=== PATIENT | male | born 1990 | race Caucasian/White ===

== ENCOUNTER 2023-02-20 08:59 | Observation (INO) ==
[2023-02-20 09:26] VITALS: BMI 30.7
[2023-02-20] MEDS ORDERED: SODIUM CHLORIDE 1,000 ML IV STA ×3 (10:56→13:45)
--- NOTE | 2023-02-20 10:56 | ED.PDOC ---
General ED Provider: Dr. SHYAM ESTEBAN MD Chief Complaint: Diabetes Stated Complaint: Patient complains of polyuria, polydipsia, over the past 5 weeks denies associated headache, blurred vision, nausea, vomiting, diarrhea, urinary symptoms or abdominal pain. Patient states both his parents are diab etic. Time Seen by Provider: 02/20/23 10:50 Information Source: Patient Exam Limitations: No limitations Nursing and Triage Documentation Reviewed and Agree: Yes Does patient meet sepsis criteria?: No System Inflammatory Response Syndrome: Not Applicable Sepsis Protocol: For patient's 13 years and over: Temp is 96.8 and below OR 101 and greater Pulse >90 BPM Resp >20/minute Acutely Altered Mental Status Are patient's symptoms suggestive of a new infection, such as: -Pneumonia -Skin, Soft Tissue -Endocarditis -UTI -Bone, Joint Infection -Implantable Device -Acute Abdominal Infection -Wound Infection -Meningitis -Blood Stream Catheter Infection -Unknown Miscellaneous Complaint Exam Complex/Multi-System Complaint/Exam Onset/Duration: Over the past 5 weeks, polyuria, polydipsia Review of Systems Review Of Systems Constitutional: Reports No symptoms Eyes: Reports No symptoms Ears, Nose, Mouth, Throat: Reports No symptoms Cardiac: Reports No symptoms GI: Reports No symptoms : Reports No symptoms Musculoskeletal: Reports No symptoms Skin: Reports No symptoms Neurological: Reports No symptoms Endocrine: Reports Increased thirst and Increased urine Hematologic/Lymphatic: Reports No symptoms All Other Systems: Reviewed and Negative Physical Exam Physical Exam Appearance: Reports Well-appearing Ill-appearing: Not Applicable Pain Distress: Not Applicable Eyes: Reports JOLANTA, EOMI and Conjunctiva clear; Denies Conjunctiva inflammed ENT: Reports Ears normal, Nose normal and Oropharynx normal; Denies TMs Occluded Neck: Supple Respiratory: Reports Airway patent, Breath sounds clear and Breath sounds equal; Denies Breath sounds diminished Cardiovascular: Reports Pulses normal, No rub and No murmur GI/: Reports Nontender, No masses, Bowel sounds normal and No Organomegaly Musculoskeletal: Reports Normal strength Skin: Reports Warm and Dry Neurological: Reports Sensation intact, Motor intact and Reflexes intact Psychiatric: Reports Affect appropriate Interpretation EKG Interpretation EKG Interpretation By: ED Physician Time of EKG #1: 11:18 Rate: Normal Rhythm: Sinus Ectopy: PVCs (Location previously) [place]: NL ST Segment: Normal Interpretation: EKG interpretation by myself Physician Notification Case Discussed Physician Notified: Discussed with hospitalist Em Time of Notification: 13:36 Comments: Discussed the patient's history of present illness emergency room course laboratory data, agrees to observation Critical Care Note Critical Care Note Total Critical Care Time (mins): 0 Course Course 02/20/23 11:13 02/20/23 11:13 Orders, Labs, Meds: Lab Review 02/20/23 02/20/23 02/20/23 11:06 11:13 11:29 WBC 9.10 RBC 5.39 Hgb 16.4 Hct 46.6 MCV 86.5 MCH 30.4 MCHC 35.2 RDW Coeff of Alejandro 13.0 Plt Count 256 Immature Gran % (Auto) 0.3 Neut % (Auto) 71.9 Lymph % (Auto) 20.7 [place] % (Auto) 5.7 Eos % (Auto) 1.2 Baso % (Auto) 0.2 Neut # (Auto) 6.5 Lymph # (Auto) 1.9 [place] # (Auto) 0.5 Eos # (Auto) 0.1 Baso # (Auto) 0.0 Immature Gran # (Auto) 0.0 Puncture Site Lbrach Base Excess -1.9 O2 Saturation 99.3 H ABG pH 7.47 H ABG pCO2 30.0 L ABG pO2 141.0 H ABG HCO3 21.8 ABG Total CO2 22.7 Babar Test Pos Hemoglobin 1.3 Oxyhemoglobin 94.0 L Carboxyhemoglobin 3.2 H Total Hemoglobin 17.2 FiO2 % Sodium 129.9 L Potassium 4.41 Chloride 94.1 L Carbon Dioxide 23.6 Anion Gap 16.61 BUN 17.9 Creatinine 0.66 Estimated GFR (MDRD) 139.00 BUN/Creatinine Ratio 27.12 Glucose 640.8 H* Hemoglobin A1c 13.51 H Calcium 9.99 Magnesium 1.95 Total Bilirubin 0.92 AST 25.9 ALT 33.6 Alkaline Phosphatase 110.2 Total Protein 8.01 Albumin 4.90 Globulin 3.11 Albumin/Globulin Ratio 1.57 TSH 1.750 Urine Color Yellow Urine Clarity Clear Urine pH 5.5 Ur Specific [place] <=1.005 Urine Protein Negative Urine Glucose (UA) 2+ H Urine Ketones 2+ H Urine Blood Negative Urine Nitrite Negative Urine Bilirubin Negative Urine Urobilinogen 0.2 Ur Leukocyte Esterase Negative Acetone, Qual Small Orders Category Date Time Status ADMIT OBSERVATION [PLACE PATIENT OBSERVATION] .TO ADMISSION 02/20/23 13:45 Active MEDSURG (NON-MONITORED BED) ABG DRAW REQUEST Stat CARDIO 02/20/23 10:57 Completed EKG-(ED ONLY) Stat CARDIO 02/20/23 10:56 Completed ACCUCHECK (MED/SURG, SCU) [BLOOD GLUCOSE MONITORING ( CARE 02/20/23 13:45 Active MED/SURG)] 0630,1100,1700,2100 ACTIVITY .Up ad Martha CARE 02/20/23 13:45 Active GIVE HS SNACK 2100 CARE 02/20/23 13:51 Active TELEMETRY MONITORING TELE CARE 02/20/23 10:56 Active VITAL SIGNS Q6HR CARE 02/20/23 13:45 Active ADA 1800 EARLENE. DIET DIETARY 02/20/23 Dinner Ordered HS SNACK DIETARY 02/20/23 Dinner Ordered ABG COOX Stat LAB 02/20/23 11:06 Completed ACETONE, QUALITATIVE Stat LAB 02/20/23 11:13 Completed CBC W/ AUTO DIFF Stat LAB 02/20/23 11:13 Completed CMP [COMPREHENSIVE METABOLIC PANEL] Stat LAB 02/20/23 11:13 Completed HEMOGLOBIN A1C Routine LAB 02/20/23 11:13 Completed MAGNESIUM Stat LAB 02/20/23 11:13 Completed TSH [THYROID STIMULATING HORMONE] Stat LAB 02/20/23 11:13 Completed URINALYSIS C & S IF INDICATED Stat LAB 02/20/23 11:29 Completed Acetaminophen [Tylenol] Meds 02/20/23 13:50 Ordered 650 mg PO Q4H PRN Insulin Regular, Human [Humulin R] Meds 02/20/23 12:00 Discontinued 10 unit IVP ONCE STA Sodium Chloride 0.9% [Sodium Chloride] 1,000 ml Meds 02/20/23 13:45 Active IV 125 mls/hr Sodium Chloride 0.9% [Sodium Chloride] 1,000 ml Meds 02/20/23 10:56 Discontinued IV BOLUS Sodium Chloride 0.9% [Sodium Chloride] 1,000 ml Meds 02/20/23 12:00 Discontinued IV BOLUS Medications Generic Name Dose Route Start Last Admin Trade Name Freq PRN Reason Stop Dose Admin Acetaminophen 650 mg 02/20/23 13:50 Acetaminophen 325 Mg Tablet PO Q4H PRN Fever >101 Sodium Chloride 1,000 mls @ 125 mls/hr 02/20/23 13:45 Sodium Chloride IV 02/20/23 21:44 .Q8H STA Discontinued Medications Generic Name Dose Route Start Last Admin Trade Name Titiq PRN Reason Stop Dose Admin Sodium Chloride 1,000 mls @ 1,000 mls/hr 02/20/23 10:56 Sodium Chloride IV 02/20/23 11:55 BOLUS STA Sodium Chloride 1,000 mls @ 1,000 mls/hr 02/20/23 12:00 02/20/23 12:38 Sodium Chloride IV 02/20/23 12:59 1,000 mls/hr BOLUS STA Administration Insulin Human Regular 10 unit 02/20/23 12:00 02/20/23 12:36 Insulin Regular, Human 100 Unit/Ml (3ml) Vial 0.1 unit/kg (10 unit) 02/20/23 12:01 10 unit IVP Administration ONCE STA Vital Signs: Temp Pulse Resp BP Pulse Ox 02/20/23 09:21 98.2 F 81 18 146/95 H 95 Discharge Plan Discharge Patient Disposition: PLACED OBSERVATION Discharge Problem: Hyperosmolar hyperglycemic state (HHS), Diabetes mellitus, new onset Did you review [place] [employer] for ALL controlled substances?: Not Applicable ED Provider: SHYAM ESTEBAN Condition: Stable Physician Progress Note: History obtained from the patient. Patient complains of a 5-week history of polyuria and polydipsia. Denies weakness, blurred vision, headache, nausea, vomiting, diarrhea, abdominal pain. Accu-Chek was greater than 500. Patient administered IV fluids normal saline 1 L bolus over 1 hour Laboratory data interpreted by myself the CBC is normal the BMP the glucose is 640. Acetone was small. The arterial blood gas pH is 7.4, CO2 of 30, PO2 141, bicarb 22. Saturation 96%. Patient received second bolus normal saline 1 L over 1 hour followed by regular insulin 10 units IV push. Accu-Chek at 1330-glucose of 425. Discussed with hospitalist Em at 1336 for observation Differential diagnosis: 1) hyperosmolar hyperglycemia 2) new onset diabetes mellitus 3) diabetic ketoacidosis []
[2023-02-20 11:30] LABS: ABG PH 7.47 (7.35-7.45); BEecf -1.9 (-2.0-3.0); COHb 3.2 (0.5-1.5); HCO3 21.8 (21-28); MetHb 1.3 (0-1.5); TCO2 22.7 (19-24); sO2 99.3 % (94-98); tHb 17.2 g/dl (11.7-17.4)
[2023-02-20 11:32] LABS: BASOPHILS % (AUTO) 0.2 % (0.0-3.0); EOSINOPHILS # (AUTO) 0.1 K/ul (0.0-0.7); EOSINOPHILS % (AUTO) 1.2 % (0.0-7.0); HEMATOCRIT 46.6 % (42.0-52.0); HEMOGLOBIN 16.4 g/dl (14.0-18.0); IMMATURE GRANULOCYTE % (AUTO) 0.3 % (0.0-5.0); LYMPHOCYTES # (AUTO) 1.9 K/uL (0.60-3.4); LYMPHOCYTES % (AUTO) 20.7 (10.0-50.0); MEAN CORPUSCULAR HEMOGLOBIN 30.4 pg (27.0-31.0); MEAN CORPUSCULAR HGB CONC 35.2 (31.8-35.4); MEAN CORPUSCULAR VOLUME 86.5 fl (80.0-94.0); MONOCYTES # (AUTO) 0.5 K/uL (0.4-2.0); MONOCYTES % (AUTO) 5.7 (0-10); NEUTROPHILS # (AUTO) 6.5 K/ul (2.0-6.9); NEUTROPHILS % (AUTO) 71.9 % (42.2-75.2); PLATELET COUNT 256 10^3/uL (140-440); RED BLOOD COUNT 5.39 10^6/ul (4.70-6.10)
[2023-02-20 11:42] LABS: ALANINE AMINOTRANSFERASE 33.6 U/L (0-50); ALBUMIN 4.9 g/dL (3.5-5.0); ALKALINE PHOSPHATASE 110.2 U/L (38-126); ASPARTATE AMINO TRANSFERASE 25.9 U/L (17-59); BILIRUBIN,TOTAL 0.92 mg/dL (0.2-1.3); BLOOD UREA NITROGEN 17.9 mg/dL (9-20); CALCIUM 9.99 mg/dL (8.4-10.2); CARBON DIOXIDE 23.6 mmol/L (22-30.0); CHLORIDE 94.1 mmol/L (98-107); CREATININE 0.66 mg/dL (0.60-1.10); MAGNESIUM 1.95 mg/dL (1.6-2.3); POTASSIUM 4.41 mmol/L (3.5-5.1); SODIUM 129.9 mmol/L (134.5-145); TOTAL PROTEIN 8.01 g/dL (6.3-8.2)
[2023-02-20 11:46] LABS: BILIRUBIN,URINE Negative (NEGATIVE); CLARITY,URINE Clear (CLEAR); COLOR,URINE Yellow (YELLOW); GLUCOSE, URINE (UA) 2+ (NEGATIVE); KETONES,URINE 2+ (NEGATIVE); LEUKOCYTE ESTERASE ,URINE Negative (NEGATIVE); NITRITE,URINE Negative (NEGATIVE); PH,URINE 5.5 (5-9); PROTEIN,URINE Negative (NEGATIVE); URINE, BLOOD Negative (NEGATIVE); UROBILINOGEN,URINE 0.2 (0.2)
[2023-02-20 11:54] LABS: GLUCOSE 640.8 mg/dL (74-106)
[2023-02-20] MEDS ORDERED: HUMULIN R IVP STA (12:00)
--- NOTE | 2023-02-20 13:36 | PCM ---
Date of Service Date Seen by Provider: 02/20/23 Time Seen by Provider: 14:00 Admit Day/Time Admission Date: 02/20/23 Admission Time: 13:45 Reason for Admission Chief Complaint: HYPERGLYCEMIA, NEW ONSET DM Hospital Provider Hospital Provider: Karena Tello PA-C, [facility] History of Present Illness History of Present Illness: Patient is a pleasant 33-year-old male with no significant past medical history who presented to the ER with possibly elevated blood sugar. He states that for the last 5 weeks he has had increased urination, fatigue, dry mouth, drinking lots of water, and blurry vision. He is driving across several states and heading home towards [place]. He felt unsafe driving because of how unwell he felt. In the ER he was found to have glucose over 600. Labs otherwise unremarkable other than sodium of 129. Bicarb normal. UA showing ketones. Sma ll acetone. Patient received 2 L of fluid and 10 units of subq insulin. He is feeling much better at this time. No nausea vomiting or abdominal pain. He states that his parents are diabetic. They are type II. No significant family history of autoimmune disease. Patient will be admitted to observation. Case Discussed With Case Discussed With: Patient's case was discussed with the ER Physicians, Dr. Thompson. [facility] Surgical History (Updated 02/20/23 @ 14:52 by KARENA TELLO PA-C) History of orthopedic surgery Z98.890 - Other specified postprocedural states (ICD-10) Family History (Updated 02/20/23 @ 14:52 by KARENA TELLO PA-C) Mother Diabetes FATHER Diabetes Social History (Updated 02/20/23 @ 14:52 by KARENA TELLO PA-C) Smoking and tobacco status: Former smoker How long ago did patient quit smokin months ago Alcohol intake: current Details: Mostly on weekends Substance use type: does not use Allergies Allergies Allergy/AdvReac Type Severity Reaction Status Date / Time No Known Allergies Allergy Unverified 02/20/23 10:32 Current Medications Home Medications 1 [No Reported Medications] 02/20/23 [History Confirmed 02/20/23 Last Taken Unknown] Home Acetaminophen (Acetaminophen 325 Mg Tablet) 650 mg PO Q4H PRN PRN Reason: Fever >101 Acetaminophen (Acetaminophen 325 Mg Tablet) 650 mg PO Q4H PRN PRN Reason: Mild Pain Enoxaparin Sodium (Enoxaparin Sodium 40 Mg/0.4 Ml Syr) 40 mg SUBCUT DAILY [facility], [facility]1983 Lactated Ringer's (Lactated Ringers) 1,000 mls @ 125 mls/hr IV .Q8H [facility], 1928[facility]1983 Insulin Glargine (Insulin Glargine,Hum.Rec.Anlog 100 Units/Ml) 10 unit SUBCUT BEDTIME [place] Insulin Human Lispro (Insulin Lispro 100 Unit/Ml (3 Ml) Vial) 0 unit SUBCUT PRN PRN; Protocol PRN Reason: Hyperglycemia Discontinued Medications Sodium Chloride (Sodium Chloride) 1,000 mls @ 1,000 mls/hr IV BOLUS STA Stop: 02/20/23 11:55 Last Admin: 02/20/23 11:00 Dose: 1,000 mls/hr Sodium Chloride (Sodium Chloride) 1,000 mls @ 1,000 mls/hr IV BOLUS STA Stop: 02/20/23 12:59 Last Admin: 02/20/23 12:38 Dose: 1,000 mls/hr Sodium Chloride (Sodium Chloride) 1,000 mls @ 125 mls/hr IV .Q8H STA Stop: 02/20/23 21:44 Last Admin: 02/20/23 14:16 Dose: 125 mls/hr Insulin Human Regular (Insulin Regular, Human 100 Unit/Ml (3ml) Vial) 10 unit 0.1 unit/kg (10 unit) IVP ONCE STA Stop: 02/20/23 12:01 Last Admin: 02/20/23 12:36 Dose: 10 unit Review of Systems Constitutional: Reports Fatigue; Denies Fever Head: Reports Normocephalic and Atraumatic Eyes: Reports Blurred vision Ears: Denies Drainage Nose: Denies Post Nasal Drip or Congestion Throat: Denies Sore Throat or Difficulty Swallowing Cardiovascular: Denies Chest pain or Chest Pressure Respiratory: Denies Cough or Shortness of air Gastrointestinal: Denies Nausea, Vomiting, Diarrhea or Abdominal pain Genitourinary: Reports Other (+polyuria ); Denies Dysuria Dermatologic: Denies Rashes Endocrine: Reports Excessive thirst and Polyuria Neurological: Reports Dizziness; Denies Headache or Weakness Psychiatric: Denies Depression or Anxiety Physical examination Most Recent Vital Signs: Most Recent Vital Signs Temperature 98.2 F 02/20/23 09:21 Temperature Source Infrared 02/20/23 09:21 Pulse Rate 81 02/20/23 09:21 Respiratory Rate 18 02/20/23 09:21 Blood Pressure 146/95 H 02/20/23 09:21 O2 Sat by Pulse Oximetry 95 02/20/23 09:21 Height 5 ft 11 in 02/20/23 09:21 Weight 220 lb 02/20/23 09:21 Appearance: Positive Well-appearing, Well-nourished, No Apparent Distress and Alert and Oriented x3 Skin: Positive [place], Warm and Good Turgor; Negative Rashes HEENT: Positive Normocephalic and Atraumatic Neck: Positive Supple and Midline Trachea Chest/Lungs: Positive Symmetrical With Equal Breath Sounds and Clear to Auscultation Bilaterally; Negative Rales, Rhonci or Wheezes Heart: Positive RRR GI/: Positive Soft, Nontender and Bowel Sounds Normal Musculoskeletal: Positive Normal Gait and Station Extremities: Positive Good ROM in All Joints; Negative Edema Neurological: Positive Cranial Nerves Intact, Alert, Oriented and Muscle Strength 5/5 in Upper and Lower Extremities Bilaterally Psychiatric: Positive Oriented x4, Appropriate Mood, Appropriate Affect and Intact Memory Labs This Visit Labs This Visit: Labs This Visit 02/20/23 02/20/23 02/20/23 11:06 11:13 11:29 WBC 9.10 RBC 5.39 Hgb 16.4 Hct 46.6 MCV 86.5 MCH 30.4 MCHC 35.2 RDW Coeff of Alejandro 13.0 Plt Count 256 Immature Gran % (Auto) 0.3 Neut % (Auto) 71.9 Lymph % (Auto) 20.7 [place] % (Auto) 5.7 Eos % (Auto) 1.2 Baso % (Auto) 0.2 Neut # (Auto) 6.5 Lymph # (Auto) 1.9 [place] # (Auto) 0.5 Eos # (Auto) 0.1 Baso # (Auto) 0.0 Immature Gran # (Auto) 0.0 Puncture Site Lbrach Base Excess -1.9 O2 Saturation 99.3 H ABG pH 7.47 H ABG pCO2 30.0 L ABG pO2 141.0 H ABG HCO3 21.8 ABG Total CO2 22.7 Babar Test Pos Hemoglobin 1.3 Oxyhemoglobin 94.0 L Carboxyhemoglobin 3.2 H Total Hemoglobin 17.2 FiO2 % Sodium 129.9 L Potassium 4.41 Chloride 94.1 L Carbon Dioxide 23.6 Anion Gap 16.61 BUN 17.9 Creatinine 0.66 Estimated GFR (MDRD) 139.00 BUN/Creatinine Ratio 27.12 Glucose 640.8 H* Calcium 9.99 Magnesium 1.95 Total Bilirubin 0.92 AST 25.9 ALT 33.6 Alkaline Phosphatase 110.2 Total Protein 8.01 Albumin 4.90 Globulin 3.11 Albumin/Globulin Ratio 1.57 TSH 1.750 Urine Color Yellow Urine Clarity Clear Urine pH 5.5 Ur Specific [place] <=1.005 Urine Protein Negative Urine Glucose (UA) 2+ H Urine Ketones 2+ H Urine Blood Negative Urine Nitrite Negative Urine Bilirubin Negative Urine Urobilinogen 0.2 Ur Leukocyte Esterase Negative Acetone, Qual Small Imaging Imaging: None Review Statement Review Statement: I have independently reviewed and interpreted the labs/EKGs/imaging that were ordered by the ER provider. I have reviewed all outside records that are available currently in our EMR including imaging/notes/labs from previous visits. Plan Plan: 1. Hyperglycemia in new onset diabetic without AMS - Bicarb normal. Symptoms improved. Pt has family history of DMT2, however he is a young presentation, catabolic symptoms, not overly obese with BMI of 30. Will send DMT1 vs 2 labs including insulin, c peptide, LILY 65. He will need to f/u with pcp outpatient for these results since they are send outs. Will start lantus 10 units at bedtime, humalog sliding scale. Diabetic diet. Will likely discharge tomorrow with lantus and metformin. A1c 13.5. 2. DM, new onset - Plan as above. 3. Pseudohyponatremia - Will improve with fluids and glucose correction. Repeat BMP in AM. DVT Prophylaxis: Lovenox Time Spent: Greater than 80 minutes spent with patient, 50% of the time spent with this patient was devoted to counseling and coordination of care. [facility] minutes spent discussing advance care planning. FULL CODE. Admit to: Observation Discussed Plan of Care with Dr. Gina Keller.
[2023-02-20] MEDS ORDERED: TYLENOL PO PRN ×2 (13:50→14:23)
[2023-02-20] MEDS: LACTATED RINGERS 1,000 ML IV SCH (15:14)
--- NOTE | 2023-02-20 15:19 | DI ---
EXAM: CHEST TWO VIEWS HISTORY: Hyperglycemia COMPARISON: None FINDINGS: The cardiomediastinal silhouette is normal. The pulmonary vasculature is normal. No pneum othoraces or pleural effusions. No consolidating infiltrates are detected. The bones are intact. IMPRESSION: 1. No acute cardiopulmonary disease. .
[2023-02-20] MEDS ORDERED: HUMALOG SUBCUT ONE (17:42)
[2023-02-20] MEDS: HUMALOG SUBCUT PRN (20:45)
[2023-02-20] MEDS ORDERED: LANTUS SUBCUT SCH (21:00)
[2023-02-20 21:54] VITALS: PULSE 63; TEMP 97.6
[2023-02-21] MEDS: LACTATED RINGERS 1,000 ML IV SCH ×2 (00:50→12:15)
[2023-02-21 05:41] LABS: BASOPHILS % (AUTO) 0.5 % (0.0-3.0); EOSINOPHILS # (AUTO) 0.2 K/ul (0.0-0.7); EOSINOPHILS % (AUTO) 2.5 % (0.0-7.0); HEMATOCRIT 46.1 % (42.0-52.0); HEMOGLOBIN 15.7 g/dl (14.0-18.0); IMMATURE GRANULOCYTE % (AUTO) 0.5 % (0.0-5.0); LYMPHOCYTES # (AUTO) 1.7 K/uL (0.60-3.4); LYMPHOCYTES % (AUTO) 26.2 (10.0-50.0); MEAN CORPUSCULAR HGB CONC 34.1 (31.8-35.4); MONOCYTES # (AUTO) 0.5 K/uL (0.4-2.0); MONOCYTES % (AUTO) 7.6 (0-10); NEUTROPHILS % (AUTO) 62.7 % (42.2-75.2); PLATELET COUNT 222 10^3/uL (140-440); RDW COEFFICIENT OF VARIATION 13.1 % (11.6-14.8); RED BLOOD COUNT 5.24 10^6/ul (4.70-6.10); WHITE BLOOD COUNT 6.34 K/ul (4.2-10.2)
[2023-02-21 05:48] LABS: ALBUMIN 4.16 g/dL (3.5-5.0); ALKALINE PHOSPHATASE 85.5 U/L (38-126); ASPARTATE AMINO TRANSFERASE 38.2 U/L (17-59); BILIRUBIN,TOTAL 0.9 mg/dL (0.2-1.3); BLOOD UREA NITROGEN 13.7 mg/dL (9-20); CALCIUM 8.64 mg/dL (8.4-10.2); CARBON DIOXIDE 30.7 mmol/L (22-30.0); CHLORIDE 99.2 mmol/L (98-107); CREATININE 0.65 mg/dL (0.60-1.10); GLUCOSE 342.1 mg/dL (74-106); POTASSIUM 3.87 mmol/L (3.5-5.1); TOTAL PROTEIN 6.93 g/dL (6.3-8.2)
[2023-02-21 05:49] VITALS: BP 131/78; RESP 16
[2023-02-21] MEDS: HUMALOG SUBCUT PRN (06:18)
[2023-02-21] MEDS ORDERED: LOVENOX SUBCUT SCH (09:00)
--- NOTE | 2023-02-21 10:10 | DCSUM ---
Admission Date Admission Date: 02/20/23 Discharge Date Discharge Date: 02/21/23 Admission Diagnosis Admission Diagnosis: 1. Hyperglycemia in new onset diabetic without AMS 2. DM, new onset 3. Pseudohyponatremia Discharge Diagnosis Discharge Diagnosis: 1. Hyperglycemia in new onset diabetic without AMS, IMPROVED 2. DM, new onset 3. Pseudohyponatremia, RESOLVED Hospital Provider Hospital Provider: KARE[facility] TE[facility]O [facility] Primary Care Physician: Out of state Summary of History and Physical Summary of History and Physical: Patient is a pleasant 33-year-old male with no significant past medical history who presented to the ER with possibly elevated blood sugar. He states that for the last 5 weeks he has had increased urination, fatigue, dry mouth, drinking lots of water, and blurry vision. He is driving [place] several states and heading home towards [place]. He felt unsafe driving because of how unwell he felt. In the ER he was found to have glucose over 600. Labs otherwise unremarkable other than sodium of 129. Bicarb normal. UA showing ketones. Small acetone. Patient received 2 L of fluid and 10 units of subq insulin. He is feeling much better at this time. No nausea vomiting or abdominal pain. He states that his parents are diabetic. They are type II. No significant family history of autoimmune disease. Patient will be admitted to observation. Hospital Course Subjective: Patient was treated with 2 L of fluid and subq insulin. He was started on Lantus 10 units at night and sliding scale Humalog. His glucose came from 600s to 300s. He felt significantly better. No chest pain, shortness of breath, abdominal pain, nausea or vomiting. He is able to tolerate a p.o. diet without any difficulty. His A1c was 13.5. Due to his age, catatonic symptoms, not overly overweight some additional labs were ordered which are send outs. At time of discharge C-peptide, fasting insulin, and LILY 65 are ordered. Patient aware that he needs to follow-up with his PCP regarding this to further differentiate between type I and type II. In meantime will discharge with Levemir 10 units at night and metformin 500 twice daily to start. Discussed with him his PCP will likely have to increase these medications or add on to help control his very high A1c. Discussed nature of the disease. Educated on insulin administration and how to check his sugar. Prescription for supplies given. Recommend a screen printing machine operator helper/dietitian referral per PCP. Will likely need DARON inhibitor and statin in the future but will not start these during this hospitalization. Patient was initially overwhelmed by this diagnosis but feeling better and all questions have been answered. Vital stable at time of discharge. Appearance: Pleasant, No Apparent Distress, Alert, Well-appearing and Well- nourished HEENT: MMM and Supple CVS: No Murmur Abdomen: Soft, Non-Tender and No Distention Respiratory: No Dyspnea Extremities: No Edema Vital Signs: Most Recent Vital Signs Temperature 97.6 F 02/21/23 05:48 Temperature Source Oral 02/21/23 05:48 Temperature Source Infrared 02/20/23 09:21 Pulse Rate 63 02/21/23 05:48 Respiratory Rate 16 02/21/23 05:48 Blood Pressure 131/78 02/21/23 05:48 Blood Pressure Mean 95 02/21/23 05:48 Blood Pressure Left Arm 139/79 02/20/23 15:14 Blood Pressure Location Left Arm 02/21/23 05:48 Blood Pressure Position Supine 02/21/23 05:48 O2 Sat by Pulse Oximetry 98 02/21/23 05:48 Oxygen Delivery Method Room Air 02/21/23 05:48 Height 5 ft 11 in 02/20/23 15:14 Weight 220 lb 02/20/23 15:14 Telemetry Type Remote Telemetry 02/21/23 07:00 Telemetry Monitoring Continues 02/21/23 07:00 Telemetry Heart Rate 58 L 02/21/23 07:00 EKG MI Interval 0.14 02/21/23 07:00 EKG QRS Interval 0.07 02/21/23 07:00 Telemetry Strip Reading SB 02/21/23 07:00 Imaging: EXAM: CHEST TWO VIEWS HISTORY: Hyperglycemia COMPARISON: None FINDINGS: The cardiomediastinal silhouette is normal. The pulmonary vasculature is normal. No pneumothoraces or pleural effusions. No consolidating infiltrates are detected. The bones are intact. IMPRESSION: 1. No acute cardiopulmonary disease. Lab Results Last 24 Hours: 02/21/23 02/20/23 02/20/23 05:25 11:29 11:13 WBC 6.34 9.10 RBC 5.24 5.39 Hgb 15.7 16.4 Hct 46.1 46.6 MCV 88.0 86.5 MCH 30.0 30.4 MCHC 34.1 35.2 RDW Coeff of Alejandro 13.1 13.0 Plt Count 222 256 Immature Gran % (Auto) 0.5 0.3 Neut % (Auto) 62.7 71.9 Lymph % (Auto) 26.2 20.7 Hutchinson % (Auto) 7.6 5.7 Eos % (Auto) 2.5 1.2 Baso % (Auto) 0.5 0.2 Neut # (Auto) 4.0 6.5 Lymph # (Auto) 1.7 1.9 Hutchinson # (Auto) 0.5 0.5 Eos # (Auto) 0.2 0.1 Baso # (Auto) 0.0 0.0 Immature Gran # (Auto) 0.0 0.0 Puncture Site Base Excess O2 Saturation ABG pH ABG pCO2 ABG pO2 ABG HCO3 ABG Total CO2 Babar Test Hemoglobin Oxyhemoglobin Carboxyhemoglobin Total Hemoglobin FiO2 % Sodium 136.0 129.9 L Potassium 3.87 4.41 Chloride 99.2 94.1 L Carbon Dioxide 30.7 H D 23.6 Anion Gap 9.97 16.61 BUN 13.7 17.9 Creatinine 0.65 0.66 Estimated GFR (MDRD) 141.00 139.00 BUN/Creatinine Ratio 21.07 27.12 Glucose 342.1 H D 640.8 H* Hemoglobin A1c 13.51 H Calcium 8.64 9.99 Magnesium 1.95 Total Bilirubin 0.90 0.92 AST 38.2 25.9 ALT 32.0 33.6 Alkaline Phosphatase 85.5 110.2 Total Protein 6.93 8.01 Albumin 4.16 4.90 Globulin 2.77 3.11 Albumin/Globulin Ratio 1.50 1.57 TSH 1.750 Urine Color Yellow Urine Clarity Clear Urine pH 5.5 Ur Specific [place] <=1.005 Urine Protein Negative Urine Glucose (UA) 2+ H Urine Ketones 2+ H Urine Blood Negative Urine Nitrite Negative Urine Bilirubin Negative Urine Urobilinogen 0.2 Ur Leukocyte Esterase Negative Acetone, Qual Small 02/20/23 11:06 WBC RBC Hgb Hct MCV MCH MCHC RDW Coeff of Alejandro Plt Count Immature Gran % (Auto) Neut % (Auto) Lymph % (Auto) Hutch[place] % (Auto) Eos % (Auto) Baso % (Auto) Neut # (Auto) Lymph # (Auto) [place] # (Auto) Eos # (Auto) Baso # (Auto) Immature Gran # (Auto) Puncture Site Lbrach Base Excess -1.9 O2 Saturation 99.3 H ABG pH 7.47 H ABG pCO2 30.0 L ABG pO2 141.0 H ABG HCO3 21.8 ABG Total CO2 22.7 Babar Test Pos Hemoglobin 1.3 Oxyhemoglobin 94.0 L Carboxyhemoglobin 3.2 H Total Hemoglobin 17.2 FiO2 % Sodium Potassium Chloride Carbon Dioxide Anion Gap BUN Creatinine Estimated GFR (MDRD) BUN/Creatinine Ratio Glucose Hemoglobin A1c Calcium Magnesium Total Bilirubin AST ALT Alkaline Phosphatase Total Protein Albumin Globulin Albumin/Globulin Ratio TSH Urine Color Urine Clarity Urine pH Ur Specific [place] Urine Protein Urine Glucose (UA) Urine Ketones Urine Blood Urine Nitrite Urine Bilirubin Urine Urobilinogen Ur Leukocyte Esterase Acetone, Qual Discharge Instructions Discharge Planning: Discharge Planning > [address] Gina Keller. Discharge Medications: Medications at Discharge (Home Meds & RX) insulin detemir U-100 100 unit/mL (3 mL) subcutaneous pen (Levemir FlexPen) 10 unit (0.1 mL) subcut BEDTIME #15 mL 02/21/23 metformin 500 mg tablet 500 mg PO BID DIABETES #60 tabs 02/21/23 Discharge Plan Discharge Discharge Orders: Discharge Patient (ONCE); Ordered 02/21/23 Ordered By: KARENA TELLO Activity Restrictions/Additional Instructions: DISCHARGE TO HOME FOLLOW UP WITH PCP AT HOME SOON POSSIBLE KEEP GLUCOSE LOG OF FASTING SUGAR IN MORNING AND IN EVENINGS BEFORE BED MAY ALSO CHECK SUGAR TWO HOURS AFTER LUNCH TO SHOW YOUR PCP DIET: DIABETIC RECOMMEND DIETITIAN REFERRAL ACTIVITY: TOLERATED, PUSH FLUIDS PENDING STUDIES: LILY 65, C PEPTIDE, FASTING INSULIN DX: NEW ONSET DIABETES IF SUGAR IS LOW, EAT A SNACK SUCH ORANGE JUICE, PEANUT BUTTER, CRACKERS Instructions: What is Insulin (GEN), How to Give an Insulin Injection (GEN), Basic Carbohydrate Counting (GEN), Hemoglobin A1c (GEN), Diabetes and Nutrition (GEN), How to Check your Blood Sugar (GEN) Care Plan Goals: Problem: Altered Blood Glucose Level Goal: Maintain blood glucose level Within Normal Limits Instructions: Diet as ordered Diet consult if indicated Monitor accucheck levels Monitor signs/symptoms of altered glucose Patient Disposition: HOME SELF-CARE Prescriptions: New Levemir FlexPen 100 unit/mL (3 mL) insulin pen 10 unit subcut BEDTIME Qty: 15 0RF metformin 500 mg tablet 500 mg PO BID Qty: 60 0RF Did you review [place] PROMOT[employer]DEL for ALL controlled substances?: Not Applicable Discussed opioids are addictive and Narcan is available by prescription or from pharmacy.: No Condition: Stable Discharge Date/Time: 02/21/23 13:11
[2023-02-21] MEDS ORDERED: HUMALOG SUBCUT ONE ×2 (11:25→12:42)
[2023-02-23 09:19] LABS: INSULIN 1.8 uIU/mL (2.6-24.9)
[2023-02-23 10:10] LABS: C-PEPTIDE 0.8 ng/mL (1.1-4.4)
[2023-02-26 14:17] LABS: GAD AUTOANTIBODY < 5.0 U/mL (0.0-5.0)
== END 2023-02-21 13:11 | disposition home or self-care (01) ==
LOC: ED 08:59 → MEDSURG B 08:59
PROVIDERS: ADMIT Physician Assistant; ATTEND Physician Assistant
DX: E87.1 Hypo-osmolality and hyponatremia; E11.65 Type 2 diabetes mellitus with hyperglycemia